=== PATIENT | female | born 1980 | race Caucasian/White ===

== ENCOUNTER 2018-07-07 20:28 | Outpatient (REF) | payer MEDICAID, SELFPAY ==
[2018-07-07 20:57] LABS: Abs Immature Grans 0.01 k/cumm (0.0-0.09); Absolute Basophil Count 0.07 k/cumm (0.0-0.2); Absolute Eosinophil Count 0.24 k/cumm (0.0-0.7); Absolute Lymphocyte Count 1.17 k/cumm (1.2-3.4); Absolute Monocyte Count 0.46 k/cumm (0.11-0.7); Absolute Neutrophil Count 3.46 k/cumm (1.2-6.7); Basophils % 1.3; Eosinophils % 4.4; HCT 40.8 % (36.0-46.0); HGB 13.7 g/dL (12.0-15.5); Immature Grans % 0.2; Lymphocytes % 21.6; Mean Corp. HGB Concentration 33.6 g/dL (32.0-36.0); Mean Corpuscular Hemoglobin 32.1 pg (27.0-33.0); Mean Corpuscular Volume 95.6 fL (80-95); Mean Platelet Volume 12.1 fL (8.0-11.0); Monocytes % 8.5; Platelet Count 108 x1000/uL (130-400); RBC 4.27 m/cumm (4.00-5.20); RBC Distribution Width 13.2 % (11.7-14.6); White Blood Cell Count 5.41 k/cumm (4.4-10.8)
== END 2018-07-07 20:48 ==
LOC: NCHCN 20:28
PROVIDERS: PCP Registered Nurse; Visit Provider Registered Nurse
DX: D69.6 Thrombocytopenia, unspecified (principal)
CPT/HCPCS: 85025

== ENCOUNTER 2018-12-18 12:12 | Outpatient (REF) | payer MEDICAID, SELFPAY ==
[2018-12-18 20:59] LABS: Abs Immature Grans 0.02 k/cumm (0.0-0.09); Absolute Basophil Count 0.05 k/cumm (0.0-0.2); Absolute Eosinophil Count 0.16 k/cumm (0.0-0.7); Absolute Lymphocyte Count 1.39 k/cumm (1.2-3.4); Absolute Monocyte Count 0.59 k/cumm (0.11-0.7); Absolute Neutrophil Count 3.58 k/cumm (1.2-6.7); Basophils % 0.9; Eosinophils % 2.8; HCT 42.4 % (36.0-46.0); HGB 14.2 g/dL (12.0-15.5); Immature Grans % 0.3; Mean Corp. HGB Concentration 33.5 g/dL (32.0-36.0); Mean Corpuscular Hemoglobin 32.1 pg (27.0-33.0); Mean Corpuscular Volume 95.9 fL (80-95); Mean Platelet Volume 12.6 fL (8.0-11.0); Monocytes % 10.2; Neutrophils % 61.8; Platelet Count 120 x1000/uL (130-400); RBC 4.42 m/cumm (4.00-5.20); RBC Distribution Width 13.2 % (11.7-14.6); White Blood Cell Count 5.79 k/cumm (4.4-10.8)
[2018-12-18 21:03] LABS: Bilirubin Negative (Negative); Blood Small (Negative); Clarity Sl Cloudy; Glucose Negative (Negative); Ketones Negative (Negative); Leukocyte Esterase Trace (Negative); Nitrite Negative (Negative); Urobilinogen 0.2 EU/dL (Up TO 0.2); pH 6.5 (5-8)
[2018-12-18 21:33] LABS: ALT 19 U/L (12-78); AST 13 U/L (15-37); Albumin 4.3 g/dL (3.4-5.0); Alkaline Phosphatase 75 U/L (46-116); BUN 9 mg/dL (7-18); Bilirubin, Total 0.6 mg/dL (0.2-1.0); CREATININE 0.86 mg/dL (0.55-1.02); Calcium 9.5 mg/dL (8.5-10.1); Chloride 103 mmol/L (98-107); Glucose 88 mg/dL (70-100); Potassium 4.4 mmol/L (3.5-5.1); Sodium 140 mmol/L (136-145); TSH (W/Ref FT4) 1.51 uIU/mL (0.358-3.74); Total Protein 7.6 g/dL (6.4-8.2); Vitamin B12 353 pg/mL (193-986)
[2018-12-18 21:47] LABS: Bacteria Many HPF (Negative); C & S Indicated? Yes; Casts Negative LPF (Negative); Crystals Negative HPF (Negative); Epithelial Cells Few HPF (Negative); Mucus Negative (Negative); Other Cells Rare Renal (Negative); RBC 0-2 (0-2)
== END 2018-12-18 12:32 ==
LOC: NCHCN 12:12
PROVIDERS: PCP Registered Nurse; Visit Provider Nurse Practitioner Family
DX: F39 Unspecified mood [affective] disorder (principal); F41.8 Other specified anxiety disorders; F12.20 Cannabis dependence, uncomplicated; F15.20 Other stimulant dependence, uncomplicated
CPT/HCPCS: 80053; 87077; 81003; 81015; 82607; 84443; 85025; 87086; 87186

== ENCOUNTER 2019-08-17 21:45 | Outpatient (REF) | payer MEDICAID, SELFPAY ==
[2019-08-19 12:57] LABS: Chlamydia Result Negative (Negative); GC Result Negative (Negative)
== END 2019-08-17 22:05 ==
LOC: NCHCN 21:45
PROVIDERS: PCP Registered Nurse; Visit Provider Nurse Practitioner Family
DX: Z72.89 Other problems related to lifestyle (principal); Z11.3 Encounter for screening for infections with a predominantly sexual mode of transmission
CPT/HCPCS: 87491; 87591

== ENCOUNTER 2019-09-07 11:55 | Outpatient (CLI) | payer MEDICAID, SELFPAY ==
--- NOTE | 2019-09-07 | DI.US_ITS ---
EXAM: US PELVIS AND TRANSVAGINAL CLINICAL HISTORY: PELVIC PAIN, ENLARGED UTERUS, R10.2,N85.2. TECHNIQUE: Ultrasound of the pelvic, both abdominal and transvaginal was performed using standard pr otocol. COMPARISON: No exams were available for comparison FINDINGS: KIDNEYS: Kidneys are symmetric in size. No evidence of renal calculi. No evidence of hydronephrosis. No renal mass or cyst identified. UTERUS: Position: Anteverted. Size: 10.7 x 5.1 x 4.1 cm Endometrium: 1.1 cm. Normal for patient's menstrual status. Myometrium: Unremarkable. Cervix: Cervical nabothian cysts are present. OVARIES: Right: 2 x 1.5 x 1.5 cm Cyst or mass: Small follicular cysts. Left: 3.1 x 1.4 x 1.5 cm Cyst or mass: Small follicular cysts. DOPPLER: Color: Symmetric and uniform flow to both ovaries. No hyperemia. Duplex: Normal ovarian arterial waveforms visualized. CUL-DE-SAC: Free fluid: None. IMPRESSION: 1. Normal sonographic appearance of the kidneys. 2. Normal-appearing uterus with endometrial stripe within normal limits. 3. Unremarkable bilateral ovaries.
== END 2019-09-07 12:15 ==
PROVIDERS: PCP Registered Nurse; Visit Provider Nurse Practitioner Family
DX: R10.2 Pelvic and perineal pain (principal); N85.2 Hypertrophy of uterus
CPT/HCPCS: 76830; 76856

== ENCOUNTER 2019-11-24 14:43 | Outpatient (REF) | payer MEDICAID, SELFPAY ==
[2019-11-24 21:13] LABS: Abs Immature Grans 0.03 k/cumm (0.0-0.09); Absolute Basophil Count 0.03 k/cumm (0.0-0.2); Absolute Eosinophil Count 0.14 k/cumm (0.0-0.7); Absolute Lymphocyte Count 1.31 k/cumm (1.2-3.4); Absolute Monocyte Count 0.76 k/cumm (0.11-0.7); Absolute Neutrophil Count 7.49 k/cumm (1.2-6.7); Basophils % 0.3; Eosinophils % 1.4; HCT 41.1 % (36.0-46.0); HGB 13.9 g/dL (12.0-15.5); Immature Grans % 0.3 %; Lymphocytes % 13.4; Mean Corp. HGB Concentration 33.8 g/dL (32.0-36.0); Mean Corpuscular Hemoglobin 32.5 pg (27.0-33.0); Mean Platelet Volume 12.2 fL (8.0-11.0); Monocytes % 7.8; Neutrophils % 76.8; Platelet Count 146 x1000/uL (130-400); RBC 4.28 m/cumm (4.00-5.20); RBC Distribution Width 13.2 % (11.7-14.6); White Blood Cell Count 9.76 k/cumm (4.4-10.8)
== END 2019-11-24 15:03 ==
LOC: NCHCN 14:43
PROVIDERS: PCP Registered Nurse; Visit Provider Registered Nurse
DX: Z86.2 Personal history of diseases of the blood and blood-forming organs and certain disorders involving the immune mechanism (principal)
CPT/HCPCS: 85025

== ENCOUNTER 2020-06-12 11:15 | Outpatient (CLI) | payer MEDICAID, SELFPAY ==
[2020-06-13 19:12] LABS: Patient Race White; SARS-CoV-2 RNA Undetected (Undetected); SARS-CoV-2 Specimen Source Nasal
== END 2020-06-12 11:35 ==
PROVIDERS: PCP Registered Nurse; Visit Provider Registered Nurse
DX: Z20.828 Contact with and (suspected) exposure to other viral communicable diseases (principal)
CPT/HCPCS: U0003

== ENCOUNTER 2020-08-23 11:50 | Outpatient (CLI) | payer MEDICAID, SELFPAY ==
[2020-08-24 14:22] LABS: COVID-19 RT-PCR UVMMC Result Negative (Negative)
== END 2020-08-23 11:51 | disposition home or self-care (01) ==
LOC: LBO 11:50
PROVIDERS: PCP Registered Nurse; Visit Provider Registered Nurse
DX: Z11.52 Encounter for screening for COVID-19 (principal)
CPT/HCPCS: U0003

== ENCOUNTER 2020-08-30 02:44 | Outpatient (CLI) | payer MEDICAID, SELFPAY ==
[2020-08-31 14:37] LABS: COVID-19 RT-PCR UVMMC Result Negative (Negative)
== END 2020-08-30 02:45 | disposition home or self-care (01) ==
LOC: LBO 02:44
PROVIDERS: PCP Registered Nurse; Visit Provider Registered Nurse
DX: Z20.822 Contact with and (suspected) exposure to COVID-19 (principal)
CPT/HCPCS: U0003

== ENCOUNTER 2020-09-06 08:36 | Outpatient (CLI) | payer MEDICAID, SELFPAY ==
[2020-09-07 13:06] LABS: COVID-19 RT-PCR UVMMC Result Negative (Negative)
== END 2020-09-06 08:37 | disposition home or self-care (01) ==
LOC: LBO 08:36
PROVIDERS: PCP Registered Nurse; Visit Provider Registered Nurse
DX: Z20.822 Contact with and (suspected) exposure to COVID-19 (principal)
CPT/HCPCS: U0003

== ENCOUNTER 2020-09-13 09:05 | Outpatient (CLI) | payer MEDICAID, SELFPAY ==
[2020-09-13 19:53] LABS: COVID-19 RT-PCR UVMMC Result Negative (Negative)
== END 2020-09-13 09:06 | disposition home or self-care (01) ==
LOC: LBO 09:05
PROVIDERS: PCP Registered Nurse; Visit Provider Registered Nurse
DX: Z20.822 Contact with and (suspected) exposure to COVID-19 (principal)
CPT/HCPCS: U0003

== ENCOUNTER 2020-09-20 08:21 | Outpatient (CLI) | payer MEDICAID, SELFPAY ==
[2020-09-20 20:20] LABS: COVID-19 RT-PCR UVMMC Result Negative (Negative)
== END 2020-09-20 08:22 | disposition home or self-care (01) ==
PROVIDERS: PCP Registered Nurse; Visit Provider Registered Nurse
DX: Z20.822 Contact with and (suspected) exposure to COVID-19 (principal)
CPT/HCPCS: U0003

== ENCOUNTER 2020-09-29 02:40 | Outpatient (CLI) | payer MEDICAID, SELFPAY ==
[2020-10-06 13:17] LABS: COVID-19 RT-PCR UVMMC Result Negative (Negative)
== END 2020-09-29 02:41 | disposition home or self-care (01) ==
LOC: LBO 02:40
PROVIDERS: PCP Registered Nurse; Visit Provider Registered Nurse
DX: Z20.822 Contact with and (suspected) exposure to COVID-19 (principal)
CPT/HCPCS: U0003

== ENCOUNTER 2020-10-04 01:58 | Outpatient (CLI) | payer MEDICAID, SELFPAY ==
[2020-10-05 13:10] LABS: COVID-19 RT-PCR UVMMC Result Negative (Negative)
== END 2020-10-04 01:59 | disposition home or self-care (01) ==
LOC: LBO 01:58
PROVIDERS: PCP Registered Nurse; Visit Provider Registered Nurse
DX: Z20.822 Contact with and (suspected) exposure to COVID-19 (principal)
CPT/HCPCS: U0003

== ENCOUNTER 2020-10-11 03:11 | Outpatient (CLI) | payer MEDICAID, SELFPAY ==
[2020-10-13 01:22] LABS: COVID-19 RT-PCR UVMMC Result Negative (Negative)
== END 2020-10-11 03:12 | disposition home or self-care (01) ==
PROVIDERS: PCP Registered Nurse; Visit Provider Registered Nurse
DX: Z20.822 Contact with and (suspected) exposure to COVID-19 (principal)
CPT/HCPCS: U0003

== ENCOUNTER 2020-10-20 08:18 | Outpatient (CLI) | payer MEDICAID, SELFPAY ==
[2020-10-21 00:15] LABS: COVID-19 RT-PCR UVMMC Result Negative (Negative)
== END 2020-10-20 08:19 | disposition home or self-care (01) ==
PROVIDERS: PCP Registered Nurse; Visit Provider Nurse Practitioner Family
DX: Z20.822 Contact with and (suspected) exposure to COVID-19 (principal)
CPT/HCPCS: U0003

== ENCOUNTER 2020-11-03 10:29 | Outpatient (CLI) | payer MEDICAID, SELFPAY ==
[2020-11-04 12:39] LABS: COVID-19 RT-PCR UVMMC Result Negative (Negative)
== END 2020-11-03 10:30 | disposition home or self-care (01) ==
PROVIDERS: PCP Registered Nurse; Visit Provider Nurse Practitioner Family
DX: Z20.822 Contact with and (suspected) exposure to COVID-19 (principal)
CPT/HCPCS: U0003

== ENCOUNTER 2020-11-10 08:31 | Outpatient (CLI) | payer MEDICAID, SELFPAY ==
[2020-11-11 12:21] LABS: COVID-19 RT-PCR UVMMC Result Negative (Negative)
== END 2020-11-10 08:32 | disposition home or self-care (01) ==
PROVIDERS: PCP Registered Nurse; Visit Provider Nurse Practitioner Family
DX: Z20.822 Contact with and (suspected) exposure to COVID-19 (principal)
CPT/HCPCS: U0003

== ENCOUNTER 2021-12-14 15:18 | Outpatient (REF) | payer MEDICAID, SELFPAY ==
[2021-12-18 08:01] LABS: Chlamydia Result Negative (Negative); GC Result Negative (Negative)
== END 2021-12-14 15:19 | disposition home or self-care (01) ==
LOC: LBN 15:18
PROVIDERS: PCP Registered Nurse; Visit Provider Obstetrics & Gynecology
DX: Z11.3 Encounter for screening for infections with a predominantly sexual mode of transmission (principal)
CPT/HCPCS: 87491; 87591

== ENCOUNTER → 2022-02-04 00:37 | Outpatient (CLI) | payer MEDICAID, SELFPAY ==
--- OUTSIDE RECORDS SUMMARY | 2022-02-04 00:42 | XMS_ITS | Encounter Summary ---
:1980 Author Organization [facility] Address [address] [place] [address] Care Team Providers Name Role Phone Unknown, Provider Primary Care Provider Encounter Details Date Type Department Care Team Description 09/06/2020 Lab Requisition [facility] Outr Resulting Lab, Pathology & Laboratory Provider [facility] [address] [place] [address] Social History Tobacco Use Types Packs/Day Years Used Date Never Assessed Sex Assigned at Date Recorded Not on file documented as of this encounter Plan of Treatment Not on filedocumented as of this encounter Visit Diagnoses Not on filedocumented in this encounter Care Teams Ladder Operator Relationship Specialty Start Date End Date Unknown, Provider, PCP - General 07/17/19 documented as of this encounter
--- OUTSIDE RECORDS SUMMARY | 2022-02-04 00:42 | XMS_ITS | Encounter Summary ---
:1980 Author Organization [facility] Address [address] [place] [address] Care Team Providers Name Role Phone Unknown, Provider Primary Care Provider Encounter Details Date Type Department Care Team Description 10/12/2020 Lab Requisition [facility] Outr Resulting Lab, Pathology & Laboratory Provider [facility] [address] [place], [place] [address] Social History Tobacco Use Types Packs/Day Years Used Date Never Assessed Sex Assigned at Date Recorded Not on file documented as of this encounter Plan of Treatment Not on filedocumented as of this encounter Procedures Procedure Name Priority Date/Time Associated Diagnosis Comme nts COVID-19 TEST [facility] Today 10/11/2020 8:48 EDT LAB PCR COVID-19 TESTING Routine 10/11/2020 8:48 EDT Resu lts for this procedure are i n the results section. documented in this encounter Results COVID-19 TEST [facility] LAB PCR (10/11/2020 8:48 EDT) Specimen Swab - Entire nasopharynx (body structur e) Performing Organization Address City/State/ZIP Code Phon e Number [facility] [address] [place] [address] SERVICES COVID-19 TESTING (10/11/2020 8:48 EDT) COVID-19 rt-PCR Negative Negative [facility] Result Comment: [facility] This test has not been FDA c leared or approved. This test has been authorized by FDA under an EUA for use by authorized laboratories. This test has been authorized only for detection of nucleic acid fro SERVICES m 2019-nCoV, not for any oth er viruses or pathogens. This test is only authorized for the duration of the declaration that circumstances exist justifying the authorization of emergency use of in vitro d iagnostic tests for detectio n and/or diagnosis of 2019-nCoV under section 564(b)(1) of Act, 21 U.S.C ?? 360bbb-3(b) (1), unless the authorization is terminated or revoked sooner. Negative results do not prec lude 2019-nCoV infection and should not be used as the sole basis for treatment or other patient management decisions. Negative results must be combined with clinical observa tions, patient history, and epidemiological informatio n. Performed on the [employer] Fusion instrument Performing Lab [place] [facility] Lab [facility] SERVICES Specimen Swab Performing Organization Address City/State/ZIP Code Phon e Number [facility] [address] [place] [address] SERVICES documented in this encounter Visit Diagnoses Not on filedocumented in this encounter Care Teams Wirer Maintenance Relationship Specialty Start Date End Date Unknown, Provider, PCP - General 07/17/19 documented as of this encounter
--- OUTSIDE RECORDS SUMMARY | 2022-02-04 00:42 | XMS_ITS | Encounter Summary ---
:1980 Author Organization [facility] Address [address] [place] [address] Care Team Providers Name Role Phone Unknown, Provider Primary Care Provider Encounter Details Date Type Department Care Team Description 10/20/2020 Lab Requisition [facility] Outr Resulting Lab, Pathology & Laboratory Provider [facility] [address] [place], [place] [address] Social History Tobacco Use Types Packs/Day Years Used Date Never Assessed Sex Assigned at Date Recorded Not on file documented as of this encounter Plan of Treatment Not on filedocumented as of this encounter Procedures Procedure Name Priority Date/Time Associated Diagnosis Comme nts COVID-19 TEST [facility] Today 10/20/2020 8:56 EDT LAB PCR COVID-19 TESTING Routine 10/20/2020 8:56 EDT Resu lts for this procedure are i n the results section. documented in this encounter Results COVID-19 TEST [facility] LAB PCR (10/20/2020 8:56 EDT) Specimen Swab - Entire nasopharynx (body structur e) Performing Organization Address City/State/ZIP Code Phon e Number [facility] [address] [place] [address] SERVICES COVID-19 TESTING (10/20/2020 8:56 EDT) COVID-19 rt-PCR Negative Negative [facility] Result Comment: [facility] This test [...] and epidemiological informatio n. Performed on the [employer] Fusion instrument Performing Lab [place] [facility] Lab [facility] SERVICES Specimen Swab Performing Organization Address City/State/ZIP Code Phon e Number [facility] [address] [place] [address] SERVICES documented in this encounter Visit Diagnoses Not on filedocumented in this encounter Care Teams Jewelry Technician Relationship Specialty Start Date End Date Unknown, Provider, PCP - General 07/17/19 documented as of this encounter
--- OUTSIDE RECORDS SUMMARY | 2022-02-04 00:42 | XMS_ITS | Encounter Summary ---
:1980 Author Organization [facility] Address [address] [place] [address] Care Team Providers Name Role Phone Unknown, Provider Primary Care Provider Encounter Details Date Type Department Care Team Description 10/22/2017 Historical Results [facility] - Caleb Hurd MD Only [facility] [address] [address] [phone] (Wo rk) Social History Tobacco Use Types Packs/Day Years Used Date Never Assessed Sex Assigned at Date Recorded Not on file documented as of this encounter Plan of Treatment Not on filedocumented as of this encounter Procedures Procedure Name Priority Date/Time Associated Diagnosis Comme nts XR SHOULDER RIGHT 2 10/22/2017 11:03 Resu lts for this OR MORE VIEWS EDT procedure are in the results section. documented in this encounter Results XR SHOULDER RIGHT 2 OR MORE VIEWS (10/22/2017 11:03 EDT) Specimen Narrative [facility] RAD[facility] - 10/22/2017 11:06 EDT ? EXAM: RADIOLOGY/SHOULDER RT 2+VIEWS ? EX. D/ (1029) ? CLINICAL INFORMATION: ? SHOULDER PAIN M25.519 ? SHOULDER RT 2+VIEWS ? Signs and Symptoms/Comments: Caleb SMITH, RECONSTRUCTIVE SURGERY IN ? 2006 SHOULDER PAIN M25.519 ? Comparison: None. ? Findings: ? 4 views of the right shoulder wer e obtained. ? The distal clavicle and scapula a re intact. There is a lucency noted ? on the proximal humerus which may relate to the presence of a ? surgical anchor. No fracture or d islocation is noted. The ? glenohumeral and acromioclavicula r alignment appear normal. There is ? no fracture or dislocation of the shoulder. No destructive bony ? lesion is identified. There is mi ld AC arthrosis. ? Impression: ? No fracture or dislocation. ? Lucency on the humeral head may r elate to the presence of a surgical ? anchor. ? REPORT SIGNED IN OTHER VENDOR SYSTEM 10/22/2017 ?Reported B y: Jacob Chew MD ? CC: ? Transcribed Date/Time: 10/22/2017 (1106) ? Upholstery Mechanic: ? Printed Date/Time: 01/07/2019 (03 21) ? PAGE 1 ? Leighann d Report ? Procedure Note Jacob Chew MD - 05/26/2019 EXAM: RADIOLOGY/SHOULDER RT 2+VIEWS EX. D/ (1029) CLINICAL INFORMATION: SHOULDER PAIN M25.519 SHOULDER RT 2+VIEWS Signs and Symptoms/Comments: R SHOULDER , RECONSTRUCTIVE SURGERY IN ? 2006 SHOULDER PAIN M25.519 Comparison: None. Findings: 4 views of the right shoulder were obta ined. The distal clavicle and scapula are int act. There is a lucency noted on the proximal humerus which may relat e to the presence of a surgical anchor. No fracture or disloca tion is noted. The glenohumeral and acromioclavicular alig nment appear normal. There is no fracture or dislocation of the shoul yifan. No destructive bony lesion is identified. There is mild AC arthrosis. Impression: No fracture or dislocation. Lucency on the humeral head may relate to the presence of a surgical anchor. REPORT SIGNED IN OTHER VENDOR SYSTEM 10/22/2017 Reported By: Jacob Chew MD CC: Transcribed Date/Time: 10/22/2017 (1106 ) Upholstery Mechanic: Printed Date/Time: 01/07/2019 (8377) PAGE 1 Signed Report Performing Organization Address City/State/ZIP Code Phon e Number [facility] documented in this encounter Visit Diagnoses Not on filedocumented in this encounter Care Teams Twill Cutter Relationship Specialty Start Date End Date Unknown, Provider, PCP - General 03/13/10 07/16/19 documented as of this encounter
--- OUTSIDE RECORDS SUMMARY | 2022-02-04 00:42 | XMS_ITS | Encounter Summary ---
:[address] [facility] Address [address] [place] [address] Care Team Providers Name Role Phone Unknown, Provider Primary Care Provider Encounter Details Date Type Department Care Team Description 11/03/2020 Lab Requisition [facility] Outr Resulting Lab, Pathology & Laboratory Provider [facility] [address] [place], [place] [address] Social History Tobacco Use Types Packs/Day Years Used Date Never Assessed Sex Assigned at Date Recorded Not on file documented as of this encounter Plan of Treatment Not on filedocumented as of this encounter Procedures Procedure Name Priority Date/Time Associated Diagnosis Comme nts COVID-19 TEST [facility] Today 11/03/2020 10:42 LAB PCR EDT COVID-19 TESTING Routine 11/03/2020 10:42 Results for this EDT procedure are i n the results section. documented in this encounter Results COVID-19 TEST [facility] LAB PCR (11/03/2020 10:42 EDT) Specimen Swab - Entire nasopharynx (body structur e) Performing Organization Address City/State/ZIP Code Phon e Number [facility] [address] [place] [address] SERVICES COVID-19 TESTING (11/03/2020 10:42 EDT) COVID-19 rt-PCR Negative Negative [facility] Result Comment: [facility] This test has not been FDA c leared or approved. This test has been authorized by FDA under an EUA for use by authorized laboratories. This test has been authorized only for detection of nucleic acid fro SERVICES m 2018-nCo, not for any oth er viruses or [...] tions, patient history, and epidemiological informatio n. Testing was performed using the dioni SARS-CoV-2 assay ([employer] on the Dioni 6800 System Performing Lab Dioni [address] [facility] Lab [facility] SERVICES Specimen Swab Performing Organization Address City/State/ZIP Code Phon e Number [facility] [address] [place] [address] SERVICES documented in this encounter Visit Diagnoses Not on filedocumented in this encounter Care Teams Plastic Molding Operator Relationship Specialty Start Date End Date Unknown, Provider, PCP - General 07/17/19 documented as of this encounter
--- OUTSIDE RECORDS SUMMARY | 2022-02-04 00:42 | XMS_ITS | Encounter Summary ---
:1980 Author Organization [facility] Address [address] [place] [address] Care Team Providers Name Role Phone Unknown, Provider Primary Care Provider Encounter Details Date Type Department Care Team Description 08/18/2019 Lab Requisition [facility] Unknown, Provider, Pathology & Laboratory [facility] [address] [facility] [place], [place] [phone] Social History Tobacco Use Types Packs/Day Years Used Date Never Assessed Sex Assigned at Date Recorded Not on file documented as of this encounter Plan of Treatment Not on filedocumented as of this encounter Procedures Procedure Name Priority Date/Time Associated Comments Diagnosis CHLAMYDIA/N. Routine 08/17/2019 13:10 Results for this GONORRHOEAE AMPLIFIED EST proced ure are in RNA the results section. documented in this encounter Results CHLAMYDIA/N. GONORRHOEAE AMPLIFIED RNA (08/17/2019 13:10 EST) Pathologist Sig nature Gonococcus Result Negative Negative [facility] SERVICES Chlamydia Result Negative Negative [facility] SERVICES Specimen Urine - Urine (substance) Narrative [facility] - 08/19/2019 12:52 EST A first catch urine specimen is acceptab le for detection of Gonorrhea and Chlamydia, but might detect up to 10% fewer infecti ons when compared with vaginal and endocervical swab samples. Performing Organization Address City/State/ZIP Code Phon e Number [facility] [address] [place] [address] SERVICES documented in this encounter Visit Diagnoses Not on filedocumented in this encounter Care Teams Cutter And Edge Trimmer Relationship Specialty Start Date End Date Unknown, Provider, PCP - General 07/17/19 documented as of this encounter
--- OUTSIDE RECORDS SUMMARY | 2022-02-04 00:42 | XMS_ITS | Encounter Summary ---
:1980 Author Organization [facility] Address [address] [place] [address] Care Team Providers Name Role Phone Unknown, Provider Primary Care Provider Encounter Details Date Type Department Care Team Description 09/06/2020 Lab Requisition [facility] Outr Resulting Lab, Pathology & Laboratory Provider [facility] [address] [place], [place] [address] Social History Tobacco Use Types Packs/Day Years Used Date Never Assessed Sex Assigned at Date Recorded Not on file documented as of this encounter Plan of Treatment Not on filedocumented as of this encounter Procedures Procedure Name Priority Date/Time Associated Diagnosis Comme nts COVID-19 TEST [facility] Today 09/06/2020 9:46 EST LAB PCR COVID-19 TESTING Routine 09/06/2020 9:46 EST Resu lts for this procedure are i n the results section. documented in this encounter Results COVID-19 TEST [facility] LAB PCR (09/06/2020 9:46 EST) Specimen Swab - Entire nasopharynx (body structur e) Performing Organization Address City/State/ZIP Code Phon e Number [facility] [address] [place] [address] SERVICES COVID-19 TESTING (09/06/2020 9:46 EST) COVID-19 rt-PCR Negative Negative [facility] Result Comment: [facility] [...] tions, patient history, and epidemiological informatio n. This test was developed and its performance characteristics determined by [facility]. It has not been cleared or approved by the US Food and Drug Administration. FDA does not require this test to go through premarket FDA review. This t est is used for clinical purposes. It should not be regarded as investigational or for research. This laboratory is certified under the Clinical Laboratory Improvement Amendm ents (CLIA) as qualified to perform high complexity clinical laboratory testing. This test is based on the CD C COVID-19 Emergency Use Authorization (EUA) assay, with minor modification as defined by the FDA Performed on the [employer] 7 Flex RT-PCR System. Performing Lab MAINOR [facility] Lab [facility] SERVICES Specimen Swab Performing Organization Address City/State/ZIP Code Phon e Number [facility] [address] [place] [address] SERVICES documented in this encounter Visit Diagnoses Not on filedocumented in this encounter Care Teams Consumer Marketing Specialist Relationship Specialty Start Date End Date Unknown, Provider, PCP - General 07/17/19 documented as of this encounter
--- OUTSIDE RECORDS SUMMARY | 2022-02-04 00:42 | XMS_ITS | Encounter Summary ---
:1980 Author Organization [facility] Address [address] [place] [address] Care Team Providers Name Role Phone Unknown, Provider Primary Care Provider Encounter Details Date Type Department Care Team Description 10/04/2020 Lab Requisition [facility] Outr Resulting Lab, Pathology & Laboratory Provider [facility] [address] [place], [place] [address] Social History Tobacco Use Types Packs/Day Years Used Date Never Assessed Sex Assigned at Date Recorded Not on file documented as of this encounter Plan of Treatment Not on filedocumented as of this encounter Procedures Procedure Name Priority Date/Time Associated Diagnosis Comme nts COVID-19 TEST [facility] Today 10/04/2020 8:32 EDT LAB PCR COVID-19 TESTING Routine 10/04/2020 8:32 EDT Resu lts for this procedure are i n the results section. documented in this encounter Results COVID-19 TEST [facility] LAB PCR (10/04/2020 8:32 EDT) Specimen Swab - Entire nasopharynx (body structur e) Performing Organization Address City/State/ZIP Code Phon e Number [facility] [address] [place] [address] SERVICES COVID-19 TESTING (10/04/2020 8:32 EDT) COVID-19 rt-PCR Negative Negative [facility] Result Comment: [facility] This [...] developed and its performance characteristics determined by [facility]. It has not been cleared or [...] defined by the FDA Performed on the [employer] 7 Pro RT-PCR System. Performing Lab [facility]OR [facility] Lab [facility] SERVICES Specimen Swab Performing Organization Address City/State/ZIP Code Phon e Number [facility] [address] [place] [address] SERVICES documented in this encounter Visit Diagnoses Not on filedocumented in this encounter Care Teams Instrument Specialist Relationship Specialty Start Date End Date Unknown, Provider, PCP - General 07/17/19 documented as of this encounter
--- OUTSIDE RECORDS SUMMARY | 2022-02-04 00:42 | XMS_ITS | Encounter Summary ---
:1980 Author Organization [facility] Address [address] [place] [address] Care Team Providers Name Role Phone Unavailable Primary Care Provider Unavailable Encounter Details Date Type Department Care Team Description 08/05/2008 Hospital Encounter [facility] - Cuca Kuo MD Other [address],[place] [address] [facility] [address] [place], [place] [id number] [place] [phone] (Wo rk) Social History Tobacco Use Types Packs/Day Years Used Date Never Assessed Sex Assigned at Date Recorded Not on file documented as of this encounter Discharge Disposition Disposition Code Departure Means Destination Home or Self Care documented in this encounter Plan of Treatment Not on filedocumented as of this encounter Procedures Procedure Name Priority Date/Time Associated Diagnosis Comme nts CYTOPATHOLOGY Routine 08/05/2008 0:00 EST Results for this procedure are i n the results section . documented in this encounter Results CYTOPATHOLOGY (08/05/2008 0:00 EST) Pathology Report: CYTOPATHOLOGY REPORT ? [facility] ? LAB Reports generated via electr onic interface contain original data; ? however they are lacking the format of the original report. ? Caution should be taken when reading/interpreting unformatted reports. ? Name: ? DAREN, MELISSA ? Accession #: ? [id number] ? : ? 1980 (Age: 28) ??F ?Collect Date: ? 08/05/2008 ? Location: ? [facility] ? Receive Date: ? 08/09/2008 ? Provider: ?[facility] P YO JANELLE-JIN MD ? Copy to: ? Specimen/Source: ? Pap Test, Cervix, ThinPrep Imaging System with manual ?? evaluation ? Last Menstrual Period: ? 1/1/09 ? Previous Gynecologic Patholo gy: ? HEMALATHA: Dysplasia 1996 ? Treatment History: ? Cryotherapy: S/P ? Infection History: ? Bacterial vaginosis: Clinica l, and Yeast Vaginitis today ? Other: ? HPVA - HPV testing requested if ASC-US on the current ThinPrep Pap test. ? SPECIMEN ADEQUACY ? Satisfactory for Eval uation ? - transformation zone compon ent present ? GENERAL CATEGORIZATION ? Negative for Intraepi thelial Lesion or Malignancy ? INTERPRETATION ? Reactive cellular zac nges associated with inflammation present (includes ?? repair). ? Shift in omar present sugge stive of bacterial vaginosis. ? Document reviewed and electr onically signed by: ? WYATT MOUNT MD ? Report Date: ??01/22/ 2009 09:56 ? End of Report ? Specimen Performing Organization Address City/State/ZIP Code Phon e Number [facility] [address] [place] [address] SERVICES [facility] [address] [place] [address] documented in this encounter Visit Diagnoses Not on filedocumented in this encounter
--- OUTSIDE RECORDS SUMMARY | 2022-02-04 00:42 | XMS_ITS | Encounter Summary ---
:1980 Author Organization [facility] Address [address] [place] [address] Care Team Providers Name Role Phone Unknown, Provider Primary Care Provider Encounter Details Date Type Department Care Team Description 06/10/2012 Hospital Encounter [facility] - Jonah Villalpando- Cuca Herrera MD [address],[facility] [id number] [place] [address] [phone] (Wo rk) Social History Tobacco Use Types Packs/Day Years Used Date Never Assessed Sex Assigned at Date Recorded Not on file documented as of this encounter Discharge Disposition Disposition Code Departure Means Destination Home or Self Care documented in this encounter Plan of Treatment Not on filedocumented as of this encounter Visit Diagnoses Not on filedocumented in this encounter Care Teams Artistic Director Relationship Specialty Start Date End Date Unknown, Provider, PCP - General 03/13/10 07/16/19 documented as of this encounter
--- OUTSIDE RECORDS SUMMARY | 2022-02-04 00:42 | XMS_ITS | Encounter Summary ---
:1980 Author Organization [facility] Address [address] [place] [address] Care Team Providers Name Role Phone Unavailable Primary Care Provider Unavailable Encounter Details Date Type Department Care Team Description 03/07/2010 Hospital Encounter [facility] - Robbin Frye MD [address] [phone] (Wo rk) Social History Tobacco Use Types [...]
--- OUTSIDE RECORDS SUMMARY | 2022-02-04 00:42 | XMS_ITS | Encounter Summary ---
:1980 Author Organization [facility] Address [address] [place] [address] Care Team Providers Name Role Phone Unknown, Provider Primary Care Provider Encounter Details Date Type Department Care Team Description 11/10/2020 Lab Requisition [facility] Outr Resulting Lab, Pathology & Laboratory Provider [facility] [address], [place] [address] Social History Tobacco Use Types Packs/Day Years Used Date Never Assessed Sex Assigned at Date Recorded Not on file documented as of this encounter Plan of Treatment Not on filedocumented as of this encounter Procedures Procedure Name Priority Date/Time Associated Diagnosis Comme nts COVID-19 TEST [facility] Today 11/10/2020 8:41 EDT LAB PCR COVID-19 TESTING Routine 11/10/2020 8:41 EDT Resu lts for this procedure are i n the results section. documented in this encounter Results COVID-19 TEST [facility] LAB PCR (11/10/2020 8:41 EDT) Specimen Swab - Entire nasopharynx (body structur e) Performing Organization Address City/State/ZIP Code Phon e Number [facility] [address] [place] [address] SERVICES COVID-19 TESTING (11/10/2020 8:41 EDT) COVID-19 rt-PCR Negative Negative [facility] Result Comment: [facility] This [...] performed using the dioni SARS-CoV-2 assay ([employer] on the Dioni 6800 System Performing Lab Dioni 6800 [facility] Lab [facility] SERVICES Specimen Swab Performing Organization Address City/State/ZIP Code Phon e Number [facility] [address] [place] [address] SERVICES documented in this encounter Visit Diagnoses Not on filedocumented in this encounter Care Teams Mail Handler Sorter Relationship Specialty Start Date End Date Unknown, Provider, PCP - General 07/17/19 documented as of this encounter
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
--- OUTSIDE RECORDS SUMMARY | 2022-02-04 00:42 | XMS_ITS | Encounter Summary ---
:1980 Author Organization [facility] Address [address] [place] [address] Care Team Providers Name Role Phone Unknown, Provider Primary Care Provider Encounter Details Date Type Department Care Team Description 01/25/2018 Hospital Encounter [facility] - Unknown, Anuj saha [facility] [phone] [place] [address] (Work) [place] [address] Social History Tobacco Use Types Packs/Day Years Used Date Never Assessed Sex Assigned at Date Recorded Not on file documented as of this encounter Discharge Disposition Disposition Code Departure Means Destination Home or Self Group Home documented in this encounter Plan of Treatment Not on filedocumented as of this encounter Visit Diagnoses Not on filedocumented in this encounter Care Teams Teacher Lip Reading Relationship Specialty Start Date End Date Unknown, Provider, PCP - General 03/13/10 07/16/19 documented as of this encounter
--- OUTSIDE RECORDS SUMMARY | 2022-02-04 00:42 | XMS_ITS | Encounter Summary ---
:1980 Author Organization [facility] Address [address] [place] [address] Care Team Providers Name Role Phone Unavailable Primary Care Provider Unavailable Encounter Details Date Type Department Care Team Description 03/07/2010 Results Only [facility] Rachel Madsen MD Laboratory Services - [address] [place] [phone] [address] [place] [address] Social History Tobacco Use Types Packs/Day Years Used Date Never Assessed Sex Assigned at Date Recorded Not on file documented as of this encounter Plan of Treatment Not on filedocumented as of this encounter Procedures Procedure Name Priority Date/Time Associated Comments Diagnosis MISCELLANEOUS TEST, Routine 03/07/2010 13:15 Resu lts for this OTHER EDT procedure are i n the results section. FLOW CYTOMETRY Routine 03/07/2010 11:00 Results f or this EDT procedure are i n the results section. CYTOGENETICS Routine 03/07/2010 0:00 Results for this EDT procedure are i n the results section. BONE MARROW/HEMPATH Routine 03/07/2010 0:00 Resul ts for this CONSULT EDT procedure are i n the results section. documented in this encounter Results MISCELLANEOUS TEST, OTHER (03/07/2010 13:15 EDT) Test Name MDS FISH [facility] Result [facility] MDS, FISH ? Specimen ?? Tissue-Slides ? Specimen ID ?? [id number] ? Source ?Bone marrow ? Order Date ?? 13 Mar 2010 13 :54 ? Reason for Referral ? r/o MDS, persistent thromboc ytopenia ? Method ? FISH probes and locus (200 n uclei) ? -5/del(5q) ??5p15.2(A2I856), 5q31(EGR1) ? Result ? Anomaly Result(%) 95% normal cutoff ? -5 ??normal ?? <4.0 ? 5q- ??normal ?? <6.0 ? NOMENCLATURE: ? nuc emiliano(R0W382,EGR1)x2[200] ? 1.0% of nuclei had one copy of EGR1 and 2 copies of F2L555. ? Interpretation ? This result is within normal limits for chromosome 5. ? DISCLAIMER: This test was de veloped and its performance ? characteristics determined b y Laboratory Medicine and ? Pathology, [facility], [facility], [place]. It has not been ? cleared or approved by the U .S. Food and Drug ? Administration. This FISH te st does not rule out other ? chromosome abnormalities. ? Body Technician/Painter ? Frederick L Kenneth Marinelli PhD ? Released Date ?? 20 Mar 2010 14:16 ? * Performing Site: ? [facility] Dpt of Lab Med & Pathology ? [address] [facility] [address] ? Mat Gauger: Joselo mathis III, M.D. ? Specimen Performing Organization Address City/State/ZIP Code Phon e Number [facility] [address] [place] [address] SERVICES [facility] [address] [place] [address] FLOW CYTOMETRY (03/07/2010 11:00 EDT) Pathology FLOW CYTOMETRY REPORT ? [facility] Report: ? LAB Reports generated via electr onic interface contain original data; ? however they are lacking the format of the original report. ? Caution should be taken when reading/interpreting unformatted reports. ? Name: ? DAREN, MELISSA ? Accession #: ? [id number] ? : ? 1980 (Age: 29) ??F ?Collect Date: ? 03/07/2010 11:00 ? Location: ? [facility] ? Receive Date: ? 03/07/2010 16:25 ? Provider: ?JAKOW DIEN ER MD ? Copy to: ?Robbin Ember mpa, MD ? MANDY P YOUNG-JIN MD ? FINAL IMMUNOPHENOTYPIC INTER PRETATION: ? Bone marrow, flow cytometric analysis: ?- No immunophenotypic ramon dence of a clonal cell population. ??See comment. ? COMMENT: ? The results of flow c ytometry show no immunophenotypic evidence of ? involvement by a clonal lymp hoproliferative or myeloproliferative disorder. ? Correlation of these finding s with morphologic and clinical data is essential; ?? please refer to bone marrow report [id number] for morphologic details. ? Document reviewed and electr onically signed by: ? Otoniel Domínguez MD ? Report Date: ??03/09/2010 13 :18 ? By the signature above, the attending physician certifies that he/she has ? personally conducted an eval uation of the described specimen and rendered or ? confirmed the above diagnosi s. ? CLINICAL HISTORY: ? The patient is a 29-y ear-old woman with persistent thrombocytopenia. ??Rule out MDS. ? DESCRIPTION: ? The specimen consists of bone marrow subjected to erythrocyte lysis by an ?? ammonium chloride-based tech nique. ??Gating is performed using CD45 fluorescence and side scatter. ??Cellular viability (assessed by propidium iodide exclusion) ?? is excellent (99%) among sunny ls with CD45 and side scatter properties typical of lymphocytes and excellent (9 8%) among CD45+ events overall. ??Expression of the ?? following markers is tested: ??CD2, CD3, CD4, CD5, CD7, CD8, CD10, CD11b, CD11c, CD13, CD14, CD16, CD19, CD20 , CD23, CD33, CD34, CD38, CD45, CD56, CD57, CD117, ?? FMC-7, HLA-DR, kappa light c sara, lambda light chain. ? A majority of the lymphoid c ells are T-lymphocytes (CD2+CD3+CD5+CD7+) with CD4+ and CD8+ subsets represented . ??The remaining lymphocytes are B-lymphocytes ? (CD19+CD20+) and NK-cells (C D2+CD3-CD16+CD56+). ??Among the B-cells, both kappa+ and lambda+ subsets are repr esented. ??A small population of hematogones is ? present. ??The remainder of the CD45+ events is predominantly of myeloid lineage. There is no increase in teresita sts or plasma cells. ? End of Report ? Specimen Performing Organization Address City/State/ZIP Code Phon e Number [facility] [address] [place] [address] SERVICES [facility] [address] [place] [address] BONE MARROW (03/07/2010 0:00 EDT) Pathology Report: BONE MARROW REPORT ? [facility] ? LAB Reports generated via electr onic interface contain original data; ? however they are lacking the format of the original report. ? Caution should be taken when reading/interpreting unformatted reports. ? Name: ? DAREN, MELISSA ? Accession #: ? [id number] ? : ? 1980 (Age: 29) ??F ?Collect Date: ? 03/07/2010 ? Location: ? [facility] ? Receive Date: ? 03/08/2010 ? Provider: ? JAKOW JENNY MD ? Copy to: ?Robbin Ember mpa, MD ? MANDY P YOUNG-JIN MD ? DIAGNOSIS: ? Peripheral blood: ? - Thrombocytopenia (102,000/ cmm). ? Bone marrow: ? - Cellular bone marro w with maturing trilineage hematopoiesis. ??See ? comment. ? DIAGNOSTIC COMMENT: ? The findings are thos e of a cellular bone marrow specimen with maturing ? trilineage hematopoiesis. ?? There is no evidence of dyspoiesis or of involvement by a neoplastic process. ??M egakaryocytes are adequate in number. ??The etiology ?? of this patient's thrombocyt openia cannot be determined with certainty on the ?? basis of the current bone ma rrow evaluation. ??Flow cytometric analysis ([id number]) yields no immunophenotypic e vidence of a clonal cell population. ??Cytogenetic ?? analysis is in progress (1 5-840), and results will be reported under separate cover. ??(Dr. Shayy Kuhn / Dr Margy Domínguez)/jackelyn ? Document reviewed and electr onically signed by: ? Otoniel Domínguez MD ? Report Date: ??2009 21:07 ? By the signature above, the attending physician certifies that he/she has ? personally conducted a gross and/or microscopic examination of the described ? specimens and rendered or co nfirmed the above diagnosis. ? TISSUE SUBMITTED: ? Bone marrow (right il iac crest): Biopsy and imprints: aspirate, clot ? section and smears. ? CLINICAL DATA: ? The patient is a 29-y ear-old woman with persistent thrombocytopenia; rule ?? out myelodysplastic syndrome . ? PERIPHERAL BLOOD: ? (02/07/2010): Hb 13.8 g/dl, Hct 40.8%, RBC 4.28 M/cmm, MCV 95.4 fl, MCH ? 32.3 pg, MCHC 33.9 g/dl, RDW 12.6%. ??WBC 6,200/cmm, with 61.3% neutrophils, ? 27.8% lymphocytes, 8.3% mono cytes, 2.3% eosinophils, 0.3% basophils. ??Platelet ?? count 102,000/cmm. ??No violette pheral smear submitted for review. ? BONE MARROW: ? Biopsy (decalcified): ??9 mm biopsy consisting of periosteum, cortical bone, hydraulic blocker trabeculae of lamell ar bone, and cellular bone marrow with blood clot. ?? Fat:cell ratio is 40:60. ??M :E ratio is 3-4:1. ??Megakaryocytes average 2/high ? power field (range 0-6). ??M ild plasmacytosis. ??Hemosiderin 0 (0-4+) (Prussian ?? Blue stain for Iron). ? Clot section: ??Consists of abundant blood clot and several small bone marrow ? particles that exhibit featu res similar to those seen in the biopsy specimen. ?? Hemosiderin 0 (0-4+) (Prussi an Blue stain for Iron). ? Smears: ??Particulate and ce llular. ? Imprints: ??Aparticulate and hypocellular. ? Granulopoiesis: ?Maturing with minimal cytologic change. ? Erythropoiesis: ?Maturing with minimal cytologic change. ? Megakaryocytes: ? Modera te; spectrum of typical forms. ? Other Cells: ?M oderate lymphocytes, few plasma cells, few ? monocytes/histiocytes. ? Hemosiderin (smears): ?? His tiocytes: no evaluable particles; 84% normoblasts, ?? 16% sideroblasts. ? 500 cell differential count: ? Late g ranulocytes ?39% ?Early granulo cytes ?15% ?Erythroid ser ies ? 26% ?Lymphocytes ? 14% ?Monocytes/his tiocytes ?3% ?Plasma cells ? 2% ?Blasts ? 1% ?Total ?? 100% ? SPECIAL STUDIES: ? Cytogenetics (CG10-72 1): ??Pending. ? Flow cytometry ([id number]): ??No immunophenotypic evidence of a clonal cell ?? population. ? End of Report ? Specimen Performing Organization Address City/State/ZIP Code Phon e Number [facility] [address] [place] [address] SERVICES [facility] [address] [place] [address] CYTOGENETICS (03/07/2010 0:00 EDT) Pathology Report: CYTOGENETICS REPORT ? [facility] ? LAB Reports generated via electr onic interface contain original data; ? however they are lacking the format of the original report. ? Caution should be taken when reading/interpreting unformatted reports. ? Name: ? DAREN, MELISSA ? Accession #: ? [id number] ? : ? 1980 (Age: 29) ??F ?Collect Date: ? 03/07/2010 ? Location: ? [facility] ? Receive Date: ? 03/07/2010 ? Provider: ? JAKOW JENNY MD ? Copy to: ?SAMANTHA QUINTANA MD ? Maxim Henderson. Sudheer, MD ? Robbin Ciampa, MD ? INTERPRETATION: ? Normal female karyoty pe ? Document reviewed and electr onically signed by: ? RAYRAY QUINTANA MD ? Report Date: ??08/23/ 2010 16:19 ? CLINICAL HISTORY: ? Persistent thrombocyt openia. ??Rule out MDS. ?clinical diagnosis ? code: 287.8, 238.72 ? SPECIMEN: ? Bone Marrow ? TEST PERFORMED: ? G-banded Karyotype ? REPORT: ? No. Cells Counted: ?? 20 ? No. Cells Analyzed: ??20 ? No. Cells Karyotyped: ??8 ? Band Resolution: ??400-450 ? KARYOTYPE: ? 46,XX[20] ? End of Report ? Specimen Performing Organization Address City/State/ZIP Code Phon e Number [facility] [address] [place] [address] SERVICES [facility] [address] [place] [address] documented in this encounter Visit Diagnoses Not on filedocumented in this encounter
--- OUTSIDE RECORDS SUMMARY | 2022-02-04 00:42 | XMS_ITS | Encounter Summary ---
:1980 Author Organization [facility] Address [address] [place] [address] Care Team Providers Name Role Phone Unknown, Provider Primary Care Provider Encounter Details Date Type Department Care Team Description 09/13/2020 Lab Requisition [facility] Outr Resulting Lab, Pathology & Laboratory Provider [facility] [address] [place], [place] [address] Social History Tobacco Use Types Packs/Day Years Used Date Never Assessed Sex Assigned at Date Recorded Not on file documented as of this encounter Plan of Treatment Not on filedocumented as of this encounter Procedures Procedure Name Priority Date/Time Associated Diagnosis Comme nts COVID-19 TEST [facility] Today 09/13/2020 9:57 EST LAB PCR COVID-19 TESTING Routine 09/13/2020 9:57 EST Resu lts for this procedure are i n the results section. documented in this encounter Results COVID-19 TEST [facility] LAB PCR (09/13/2020 9:57 EST) Specimen Swab - Entire nasopharynx (body structur e) Performing Organization Address City/State/ZIP Code Phon e Number [facility] [address] [place] [address] SERVICES COVID-19 TESTING (09/13/2020 9:57 EST) COVID-19 rt-PCR Negative Negative [facility] Result Comment: CENTER [facility]ATORY This [...] and epidemiological informatio n. Performed on the SwingPalher Fusion instrument Performing Lab [place] [facility] Lab [facility] SERVICES Specimen Swab Performing Organization Address City/State/ZIP Code Phon e Number [facility] [address] [place] [address] SERVICES documented in this encounter Visit Diagnoses Not on filedocumented in this encounter Care Teams Phy Therapist Relationship Specialty Start Date End Date Unknown, Provider, PCP - General 07/17/19 documented as of this encounter
--- OUTSIDE RECORDS SUMMARY | 2022-02-04 00:42 | XMS_ITS | Encounter Summary ---
:1980 Author Organization [facility] Address [address] [place] [address] Care Team Providers Name Role Phone Unknown, Provider Primary Care Provider Encounter Details Date Type Department Care Team Description 10/22/2017 Hospital Encounter [facility] - Unknown, Anuj saha [facility] [phone] [place] [address] (Work) [place] [address] Social History Tobacco Use Types Packs/Day Years Used Date Never Assessed Sex Assigned at Date Recorded Not on file documented as of this encounter Discharge Disposition Disposition Code Departure Means Destination Auto Discharge Home documented in this encounter Plan of Treatment Not on filedocumented as of this encounter Visit Diagnoses Not on filedocumented in this encounter Care Teams Ibm Websphere Portal Developer Relationship Specialty Start Date End Date Unknown, Provider, PCP - General 03/13/10 07/16/19 documented as of this encounter
--- OUTSIDE RECORDS SUMMARY | 2022-02-04 00:42 | XMS_ITS | Encounter Summary ---
:1980 Author Organization [facility] Address [address] [place] [address] Care Team Providers Name Role Phone Unknown, Provider Primary Care Provider Encounter Details Date Type Department Care Team Description 12/14/2021 Lab Requisition [facility] Outr Resulting Lab, Pathology & Laboratory Provider [facility] [address] [place] [address] Social History Tobacco Use Types Packs/Day Years Used Date Never Assessed Sex Assigned at Date Recorded Not on file documented as of this encounter Plan of Treatment Not on filedocumented as of this encounter Procedures Procedure Name Priority Date/Time Associated Comments Diagnosis CHLAMYDIA/N. Routine 12/14/2021 11:00 Results for this GONORRHOEAE AMPLIFIED EDT proced ure are in RNA the results section. documented in this encounter Results CHLAMYDIA/N. GONORRHOEAE AMPLIFIED RNA (12/14/2021 11:00 EDT) Pathologist Sig nature Gonococcus Result Negative Negative [facility] Chlamydia Result Negative Negative [facility] Specimen Urine - Urine, Initial Void Narrative [facility] - 12/18/2021 7:57 EDT A first catch urine specimen is acceptab le for detection of Gonorrhea and Chlamydia, but might detect up to 10% fewer infecti ons when compared with vaginal and endocervical swab samples. Performing Organization Address City/State/ZIP Code Phon e Number [facility] [address] [place] [address] SERVICES documented in this encounter Visit Diagnoses Not on filedocumented in this encounter Care Teams Display Specialist Relationship Specialty Start Date End Date Unknown, Provider, PCP - General 07/17/19 documented as of this encounter
--- OUTSIDE RECORDS SUMMARY | 2022-02-04 00:42 | XMS_ITS | Encounter Summary ---
:1980 Author Organization [facility] Address [address] [place] [address] Care Team Providers Name Role Phone Unknown, Provider Primary Care Provider Encounter Details Date Type Department Care Team Description 08/30/2020 Lab Requisition [facility] Outr Resulting Lab, Pathology & Laboratory Provider [facility] [address], [place] [id number] Social History Tobacco Use Types Packs/Day Years Used Date Never Assessed Sex Assigned at Date Recorded Not on file documented as of this encounter Plan of Treatment Not on filedocumented as of this encounter Procedures Procedure Name Priority Date/Time Associated Diagnosis Comme nts COVID-19 TEST [facility] Today 08/30/2020 8:24 EST LAB PCR COVID-19 TESTING Routine 08/30/2020 8:24 EST Resu lts for this procedure are i n the results section. documented in this encounter Results COVID-19 TEST [facility] LAB PCR (08/30/2020 8:24 EST) Specimen Swab - Entire nasopharynx (body structur e) Performing Organization Address City/State/ZIP Code Phon e Number [facility] [address] [place] [address] SERVICES COVID-19 TESTING (08/30/2020 8:24 EST) COVID-19 rt-PCR Negative Negative [facility] Result Comment: [facility] This test has not been FDA c leared or approved. This test has been authorized by FDA under an EUA for use by authorized laboratories. This test has been authorized only for detection of nucleic acid fro SERVICES m 2018-nCoV, not for any oth er viruses or [...] developed and its performance characteristics determined by [facility]. It has not been cleared or approved [...] defined by the FDA Performed on the [employer] 7 Flex RT-PCR System. Performing Lab [facility] SERVICES Specimen Swab Performing Organization Address City/State/ZIP Code Phon e Number [facility] [address] [place] [address] SERVICES documented in this encounter Visit Diagnoses Not on filedocumented in this encounter Care Teams Weaving Teacher Relationship Specialty Start Date End Date Unknown, Provider, PCP - General 07/17/19 documented as of this encounter
--- OUTSIDE RECORDS SUMMARY | 2022-02-04 00:42 | XMS_ITS | Encounter Summary ---
:1980 Author Organization [facility] Address [address] [place] [address] Care Team Providers Name Role Phone Unknown, Provider Primary Care Provider Encounter Details Date Type Department Care Team Description 02/06/2005 Results Only [facility] - Jonah Kuo MD Maple conversion [address] [facility] [place] [address] [place] [address] [phone] Social History Tobacco Use Types Packs/Day Years Used Date Never Assessed Sex Assigned at Date Recorded Not on file documented as of this encounter Plan of Treatment Not on filedocumented as of this encounter Procedures Procedure Name Priority Date/Time Associated Diagnosis Comme nts SURGICAL PATHOLOGY Routine 02/06/2005 0:00 EDT Re sults for this procedure are i n the results section. documented in this encounter Results SURGICAL PATHOLOGY (02/06/2005 0:00 EDT) Pathology Report: SURGICAL PATHOLOGY REPORT YULI MARTÍNEZ Reports generated via electronic interface contain krystal ginal data; LAB however they are lacking the format of the original re port. Caution should be taken when reading/interpreting unfo rmatted reports. Name: ? MELISSA MERCEDES ? Accession #: ? [id number] ? : ? 1980 (Age: 24) ??F ? Collect Date: ? 02/06/2005 ? Location: ? [facility] ? Receive Date: ? 02/07/20 05 ? Provider: MANDY KUO MD Copy to: ? Final Pathologic Diagnosis: A. ?Fallopian tube, left, partial salping ectomy: 1. ?Full cross section identified, no pat hologic features. B. ?Fallopian tube, right, partial salpin gectomy: 1. ?Full cross section identified, no pat hologic features. Document reviewed and electronically signed by: JAMISON CARRENO MD Report ??Date: 02/08/2005 13:18 By the signature above, the attending physician certif ies that he/she has personally conducted a gross and/or microscopic examin ation of the described specimens and rendered or confirmed the above diagnosi s. Specimen(s) Received: ? A. ??Lt. tube (fallopian) (#1) B. ??Rt. tube (fallopian) (#2) Clinical History: ? Tubal ligation Gross Description: ? Received in a clear l iquid not specified as to what the liquid is labelled Chyna and 1 - Lt. tube fallopian is a short cylindrical segment of tissue which measures 1.0 cm in debbie gth by 0.5 cm in diameter. ??The serosa is generally smooth and sullivan. A branch customer service representative cross section is subm itted as (A). Received in a clear liquid not specified as what the l iquid is labelled Chyna and 2 ??Rt. tube fallopian is a short cylindrical segment of tissue which measures 1.0 cm in debbie gth by 0.6 cm in diameter. ??The serosa is generally smooth and blue-phillip. A repr esentative cross section is submitted as (B). ??(Misael Becerra/[facility] End of Report Specimen Performing Organization Address City/State/ZIP Code Phon e Number [facility] [address] [place] [address] SERVICES [facility] [address] [place] [address] documented in this encounter Visit Diagnoses Not on filedocumented in this encounter Care Teams Public Housing Manager Relationship Specialty Start Date End Date Unknown, Provider, PCP - General 03/13/10 07/16/19 documented as of this encounter
--- OUTSIDE RECORDS SUMMARY | 2022-02-04 00:42 | XMS_ITS | Encounter Summary ---
:1980 Author Organization [facility] Address [address] [place] [address] Care Team Providers Name Role Phone Unknown, Provider Primary Care Provider Encounter Details Date Type Department Care Team Description 09/20/2020 Lab Requisition [facility] Outr Resulting Lab, Pathology & Laboratory Provider [facility] [address], [place] [address] Social History Tobacco Use Types Packs/Day Years Used Date Never Assessed Sex Assigned at Date Recorded Not on file documented as of this encounter Plan of Treatment Not on filedocumented as of this encounter Procedures Procedure Name Priority Date/Time Associated Diagnosis Comme nts COVID-19 TEST [facility] Today 09/20/2020 9:45 EST LAB PCR COVID-19 TESTING Routine 09/20/2020 9:45 EST Resu lts for this procedure are i n the results section. documented in this encounter Results COVID-19 TEST [facility] LAB PCR (09/20/2020 9:45 EST) Specimen Swab - Entire nasopharynx (body structur e) Performing Organization Address City/State/ZIP Code Phon e Number [facility] [address] [place] [address] SERVICES COVID-19 TESTING (09/20/2020 9:45 EST) COVID-19 rt-PCR Negative Negative [facility] Result Comment: [facility] This test [...] and epidemiological informatio n. Performed on the [employer] Fusion instrument Performing Lab [place] [facility] Lab [facility] SERVICES Specimen Swab Performing Organization Address City/State/ZIP Code Phon e Number [facility] [address] [place] [id number] SERVICES documented in this encounter Visit Diagnoses Not on filedocumented in this encounter Care Teams Electrotype Servicer Relationship Specialty Start Date End Date Unknown, Provider, PCP - General 07/17/19 documented as of this encounter
--- OUTSIDE RECORDS SUMMARY | 2022-02-04 00:42 | XMS_ITS | Encounter Summary ---
:1980 Author Organization [facility] Address [address] [place] [address] Care Team Providers Name Role Phone Unknown, Provider Primary Care Provider Encounter Details Date Type Department Care Team Description 03/09/2012 Phlebotomy Only [facility] - Chronic Disease Manager, [facility] Outpatient [address] [place] [address] Social History Tobacco Use Types Packs/Day Years Used Date Never Assessed Sex Assigned at Date Recorded Not on file documented as of this encounter Plan of Treatment Not on filedocumented as of this encounter Visit Diagnoses Not on filedocumented in this encounter Care Teams Beam Saw Operator Relationship Specialty Start Date End Date Unknown, Provider, PCP - General 03/13/10 07/16/19 documented as of this encounter
--- NOTE | 2022-02-04 07:45 | DI.US_ITS ---
Exam(s) US PELVIS TRANSVAGINAL EXAM: US PELVIS TRANSVAGINAL CLINICAL HISTORY: pelvic pain,perimenopausal menorrhagia,r10.2,n92.4 TECHNIQUE: Transabdominal and transvaginal imaging was performed using standard protocol. COMPARISON: No exams were available for comparison FINDINGS: KIDNEYS: Kidneys are symmetric in size. No evidence of renal calculi. No evidence of hydronephrosis. No renal mass or cyst identified. UTERUS: Retroflexed. 9.8 x 4.1 x 5.5 Endometrium: 5 millimeters Myometrium: Unremarkable. Cervix: Unremarkable. OVARIES: Right: Cyst or mass: 1 centimeter follicle. Left: Cyst or mass: None. DOPPLER: Color: Symmetric and uniform flow to both ovaries. No hyperemia. Duplex: Normal ovarian arterial waveforms visualized. CUL-DE-SAC: Free fluid: None. IMPRESSION: 1. Normal-appearing uterus with endometrial stripe within normal limits. 2. Unremarkable bilateral ovaries. DATA REPOSITORY:
== END ==
PROVIDERS: PCP Registered Nurse; Visit Provider Obstetrics & Gynecology
DX: N92.4 Excessive bleeding in the premenopausal period (principal); R10.2 Pelvic and perineal pain
CPT/HCPCS: 76830; 76856

== ENCOUNTER 2024-06-09 13:21 | Outpatient (CLI) | payer MEDICAID, SELFPAY ==
[2024-06-09 23:59] LABS: HIV-1/2 Ag & Ab Screen Negative (Negative); Hepatitis C Ab w Rflx HCV PCR Negative (Negative)
[2024-06-12 13:23] LABS: Syphilis IgG w/Reflex Nonreactive (Nonreactive)
== END 2024-06-09 13:22 | disposition home or self-care (01) ==
LOC: LBO 13:22
PROVIDERS: PCP Registered Nurse; Visit Provider Nurse Practitioner Women's Health
DX: Z11.3 Encounter for screening for infections with a predominantly sexual mode of transmission (principal); R30.0 Dysuria; N76.0 Acute vaginitis; R82.90 Unspecified abnormal findings in urine
CPT/HCPCS: 36415; 86803; 87389; 86780

== ENCOUNTER 2024-06-09 13:44 | Outpatient (REF) | payer MEDICAID, SELFPAY ==
[2024-06-10 10:58] LABS: Chlamydia Result Negative (Negative); GC Result Negative (Negative)
== END 2024-06-09 13:45 | disposition home or self-care (01) ==
LOC: LBN 13:44
PROVIDERS: PCP Registered Nurse; Visit Provider Nurse Practitioner Women's Health
DX: Z11.3 Encounter for screening for infections with a predominantly sexual mode of transmission (principal); R30.0 Dysuria; N76.0 Acute vaginitis; R82.90 Unspecified abnormal findings in urine
CPT/HCPCS: 87077; 87491; 87591; 87086; 87186; 87480; 87510; 87660